=== PATIENT | female | born 1960 | race Caucasian/White ===

== ENCOUNTER 2016-11-11 16:05 | Inpatient (IN) | payer MEDICARE, MEDICAID ==
[2016-11-11] MEDS ORDERED: MAG HYDROX/AL HYDROX/SIMETH 30 ML CUP PO PRN (17:53)
[2016-11-11] MEDS ORDERED: ACETAMINOPHEN TAB 325 MG TAB PO PRN (17:53)
[2016-11-11] MEDS ORDERED: MAGNESIUM HYDROXIDE 2,400 MG/10 ML CUP PO PRN (17:53)
[2016-11-11] MEDS ORDERED: ALBUTEROL INHALER 60 PUFF/8 GM INHALER INHALATION PRN (17:57)
[2016-11-11] MEDS ORDERED: LOPERAMIDE 2 MG CAP PO PRN (17:57)
[2016-11-11] MEDS ORDERED: IBUPROFEN 800 MG TAB PO PRN (18:23)
[2016-11-11] MEDS: ALBUTEROL NEBULIZED 2.5 MG/3 ML INHALATION PRN (18:33)
[2016-11-11] MEDS: LORazepam 1 MG TAB PO PRN (18:57)
[2016-11-11] MEDS: NICOTINE 21MG/24HR PATCH TRANSDERM SCH (19:29)
[2016-11-11] MEDS: traZODone HCL 100 MG TAB PO SCH (21:23)
[2016-11-12] MEDS: LORazepam 1 MG TAB PO PRN ×2 (02:54→13:51)
[2016-11-12] MEDS: ALBUTEROL NEBULIZED 2.5 MG/3 ML INHALATION PRN ×3 (03:13→21:25)
[2016-11-12] MEDS ORDERED: SYMBICORT 160-4.5 MCG INHALER INHALATION SCH (08:00)
[2016-11-12] MEDS ORDERED: DULoxetine HCL 60 MG CAPSULE.DR PO SCH (09:00)
[2016-11-12] MEDS ORDERED: NICOTINE 21MG/24HR PATCH TRANSDERM SCH (09:00)
[2016-11-12] MEDS: amLODIPine 10 MG TAB PO SCH (09:31)
[2016-11-12] MEDS: NICOTINE 21MG/24HR PATCH TRANSDERM SCH (09:32)
[2016-11-12] MEDS ORDERED: clonazePAM 0.5 MG TAB PO STA (10:19)
[2016-11-12] MEDS: guaiFENesin-DM 100-10MG/5ML 10 ML CUP PO PRN ×2 (13:50→21:45)
--- NOTE | 2016-11-12 15:20 | P.HPMEDMHU ---
History of Present Illness H&P Date: 11/12/16 Chief Complaint: Major depressive disorder with suicidal ideation. This is a 56-year-old female one of the Dr. Banks with a previous medical history significant for COPD, chronic fatigue syndrome that was diagnosed back in 2010, hypertension, mitral regurgitation, endometriosis, colon cancer status post right hemicolectomy, chronic tobacco use and dependence with COPD, patient was brought into the emergency department at [facility] because she overdosed on medication and alcohol and she was sent into our mental health unit for evaluation and management. Patient stated that this is not the first time she tried to commit suicide, apparently she did have that twice before. Review of Systems Constitutional: Reports chronic pain, Reports weakness, Denies weight gain, Denies weight loss Eyes: denies blurred vision, denies bulging eye, denies decreased vision Ears: deny: decreased hearing Ears, nose, mouth and throat: Denies dysphagia, Denies neck lump, Denies sore throat Cardiovascular: Reports decreased exercise tolerance, Reports dyspnea on exertion, Reports high blood pressure, Reports shortness of breath, Denies chest pain, Denies paroxysmal nocturnal dyspnea, Denies phlebitis, Denies rapid heart beat Respiratory: Reports cough with sputum, Reports dyspnea, Reports wheezing, Denies congestion, Denies cough, Denies home oxygen, Denies sleep apnea, Denies snoring Gastrointestinal: Denies abdominal pain, Denies bloating, Denies BRBPR, Denies excessive gas, Denies heartburn, Denies hematemesis, Denies hematochezia, Denies indigestion, Denies melena, Denies nausea, Denies vomiting Genitourinary: Denies dysuria, Denies hematuria Menstruation: Reports post hysterectomy Musculoskeletal: Denies myalgias Musculoskeletal: absent: ankle pain, ankle stiffness, ankle swelling, elbow pain , elbow stiffness, elbow swelling, foot pain, foot stiffness, foot swelling, hand pain, hand stiffness, hand swelling, hip pain, hip stiffness, hip swelling , knee pain, knee stiffness, knee swelling, shoulder pain, shoulder stiffness, shoulder swelling, wrist pain, wrist stiffness, wrist swelling Integumentary: Denies pruritus, Denies rash Neurological: Denies numbness, Denies weakness Psychiatric: Reports anxiety, Reports depression, Reports sadness/tearfulness, Reports sleep disturbances, Reports suicidal ideation Endocrine: Denies fatigue, Denies weight change Past Medical History Past Medical History: Cancer, COPD, Dementia, Deep Vein Thrombosis (DVT), Hyperlipidemia, Hypertension, Pneumonia Additional Past Medical History / Comment(s): Chronic Fatigue Syndrome, Heart Mumur, Chronic Diarrhea, Colon Cancer, Carina Gan Virus, Kidney Stones, pneumatosis, possible AR, hypertension. History of Any Multi-Drug Resistant Organisms: None Reported Past Surgical History: Bowel Resection, Cholecystectomy Additional Past Surgical History / Comment(s): Right hemicolectomy, left chest tube placement due to pneumothorax, total abdominal hysterectomy and bilateral sopping oophorectomy due to REBECCA, appendectomy, colonoscopy, left ankle open reduction and internal fixation with removal of the prosthesis. Smoking Status: Current every day smoker (Patient smokes about a pack every day since she was 12-year-old.) Past Alcohol Use History: Daily (Patient drinks a glass of wine sometimes with dinner.) - Past Family History Mother Family Medical History: Cancer (Mother at age of 50 from ovarian cancer.) Father Family Medical History: Unable to Obtain (Father is alive does not talk to him, she does not know nothing about him) Brother(s) Family Medical History: No Reported History (Patient has one brother no major medical problems) Sister(s) Family Medical History: No Reported History (Patient has one sister lesion recurrent problems) Daughter(s) Family Medical History: No Reported History (Patient has 3 daughters no major medical problems.) Son(s) Family Medical History: No Reported History (Patient has 2 sons no major medical problems.) Medications and Allergies Home Medications Medication Instructions Recorded Confirmed Type ALPRAZolam [Xanax] 1 mg PO QID PRN 11/11/16 11/11/16 History ARIPiprazole 6 mg PO DAILY 11/11/16 11/11/16 History Albuterol Nebulized [Ventolin 2.5 mg INHALATION RT-Q6H PRN 11/11/16 11/11/16 History Nebulized] Albuterol Sulfate [Proair Hfa] 2 puff INHALATION RT-DAILY PRN 11/11/16 11/11/16 History Butalb/Acetaminophen/Caffeine 1 tab PO Q4H PRN 11/11/16 11/11/16 History [Fioricet 50-325-40] DULoxetine HCL [Cymbalta] 60 mg PO DAILY 11/11/16 11/11/16 History Fluticasone/Salmeterol [Advair 1 puff PO DAILY 11/11/16 11/11/16 History 500-50 Diskus] Hydrocodone/Acetaminophen [[place] 1 tab PO DAILY PRN 11/11/16 11/11/16 History 10-325] L.acidoph,Paracasei, B.lactis 1 cap PO DAILY 11/11/16 11/11/16 History [Probiotic] Loperamide [Imodium] 2 mg PO TID 11/11/16 11/11/16 History Nicotine 14Mg/24Hr Patch [Habitrol 1 patch TRANSDERM DAILY 11/11/16 11/11/16 History 14Mg/24Hr Patch] amLODIPine BESYLATE [Norvasc] 10 mg PO DAILY 11/11/16 11/11/16 History traZODone HCL [Desyrel] 200 mg PO HS 11/11/16 11/11/16 History Allergies Allergy/AdvReac Type Severity Reaction Status Date / Time codeine AdvReac Severe Unknown Verified 11/11/16 17:51 Physical Exam Vitals: Vital Signs Temp Pulse Pulse Resp BP Pulse Ox 11/12/16 11:42 96 11/12/16 11:24 96 11/12/16 03:14 76 11/12/16 02:58 98.0 F 117 H 20 118/78 11/11/16 18:44 90 11/11/16 18:40 98.6 F 93 18 139/90 92 L 11/11/16 18:35 90 11/11/16 18:15 98.6 F 93 18 139/90 92 L Intake and Output 11/12/16 11/12/16 11/12/16 06:59 14:59 22:59 Other: Weight 51.9 kg Patient Weight 11/13/16 06:59 Weight 51.9 kg - Constitutional General appearance: mild distress, thin - EENT Eyes: anicteric sclerae, PERRLA, no ptosis, no scleral icterus, normal appearance ENT: hearing grossly normal, NA/AT, normal oropharynx, no thrush Ears: bilateral: normal - Neck Neck: no lymphadenopathy, normal ROM, no rigidity, no stridor, no thyromegaly Carotids: bilateral: upstroke normal Thyroid: bilateral: normal size - Respiratory Respiratory: bilateral: diminished, wheezing, prolonged expiration, negative: dullness, rales, rhonchi - Cardiovascular Rhythm: regular Heart sounds: normal: S1, S2 Abnormal Heart Sounds: systolic murmur, no S3 Gallop, no S4 Gallop - Gastrointestinal General gastrointestinal: normal bowel sounds, soft, no splenomegaly, no tenderness, no umbilical hernia, no ventral hernia - Integumentary Integumentary: normal, normal turgor, rash (Anterior chest) - Neurologic Neurologic: CNII-XII intact - Musculoskeletal Musculoskeletal: gait normal, generalized weakness - Psychiatric Psychiatric: A&O x's 3, no appropriate affect, intact judgment & insight Cranial Nerve Examination - Cranial Nerves Cranial Nerve I- Olfactory: Intact Cranial Nerve II- Optic: Intact Cranial Nerve III- Oculomotor: Intact Cranial Nerve IV- Trochlear: Intact Cranial Nerve V- Trigeminal: Intact Cranial Nerve - Abducens: Intact Cranial Nerve VII- Facial: Intact Cranial Nerve VIII- Auditory: Intact Cranial Nerve IX- Glossopharyngeal: Intact Cranial Nerve X- Vagus: Intact Cranial Nerve XI- Accessory: Intact Cranial Nerve XII- Hypoglossal: Intact Assessment and Plan Plan: Assessment and plan: 1. Depressive disorder with suicidal ideation. Admit to the health unit, patient will be placed in suicidal precautions, she was also started on Cymbalta 90 mg orally once every day along with Abilify 5 mg orally once every day and Klonopin 0.5 mg orally 3 times every day. 2. Hypertension and hypertensive cardio vascular disease. Continue amlodipine 10 mg orally once every day. 3. Chronic fatigue syndrome. Stable. 4. Chronic tobacco use and dependence with chronic COPD. Continue DuoNeb nebulization 4 times every day along with Symbicort 160/4.5 g 2 puffs inhalation twice every day. 5. History of colon cancer post right hemicolectomy. In remission 6. History of endometriosis. Post hysterectomy. 7. Mitral regurgitation. Stable at this time. 8. Thank you for the consult. We will follow the patient with you.
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
[2016-11-12] MEDS: clonazePAM 0.5 MG TAB PO SCH ×2 (16:31→21:45)
[2016-11-12] MEDS: traZODone HCL 100 MG TAB PO SCH (21:45)
[2016-11-12 21:58] LABS: Appearance,Urine Clear (Clear); Bilirubin,Urine Negative (Negative); Glucose,Urine (UA) Negative (Negative); Ketones,Urine Negative (Negative); Leukocyte Esterase,Urine Negative (Negative); Nitrite,Urine Negative (Negative); Protein,Urine Negative (Negative); Specific Gravity,Urine 1.003 (1.001-1.035); UA Billing (MACRO vs. MICRO) CHEM; Urobilinogen,Urine <2.0 mg/dL (<2.0)
[2016-11-13 06:44] VITALS: BP 124/75; PULSE 88; RESP 12; TEMP 98.6
[2016-11-13] MEDS: clonazePAM 0.5 MG TAB PO SCH (08:25)
[2016-11-13] MEDS: amLODIPine 10 MG TAB PO SCH (08:25)
[2016-11-13] MEDS: NICOTINE 21MG/24HR PATCH TRANSDERM SCH (08:26)
[2016-11-13] MEDS ORDERED: DULoxetine HCL 30 MG CAPSULE.DR PO SCH (09:00)
[2016-11-13] MEDS ORDERED: ARIPiprazole 5 MG TAB PO SCH (09:00)
[2016-11-13 09:48] VITALS: BMI 20.2
--- NOTE | 2016-11-13 12:27 | P.PN ---
Progress Note - Text SUBJECTIVE: I reviewed the medical record, interviewed Mr. Cano and discussed her treatment and treatment plan during team meeting. She is a 56-year-old woman who presented to the unit voluntarily. She stated that on the day of admission she had been drinking and began having thoughts of suicide. She called the suicide hotline, the suicide Center called EMS brought her to [facility]. She moved into her own home in May 2016 and talked about living alone for the first time in her life. She had been living with the daughter but the daughter is now engaged and wished her mother to move. After she left her daughter's home she lived temporarily [place] [place] She stated that she remained friends with the owners and did not feel alone in the apartment. She left the apartment when she found a home that she could afford on her fixed income. talked about withdrawing from friends and family and feeling unhappy. She alleged that she attempted suicide about 2 days prior to admission by taking 2 Xanax into trazodone tablets. She did not drink alcohol in addition to the medications and did not seek mental health treatment.. On the day of admission she went to a bar with a friend. She drank "between 6 and 8 beers". Her friend left the bar but she remained and continue to socialize with friends at the bar. When she returned home she began to read over her journal. As she read the general she realizes that she has become more and more isolated. She began having feelings of hopelessness and helplessness. When she had thoughts of suicide she called the suicide hotline. She currently denies feeling hopeless, helpless and worthless. She stated that "mentally I am much better but physically feeling poorly. I feel nauseous and had diarrhea last night." She completed the Malloy Depression Inventory. Her total score was 4 consistent with minimal symptoms of depression. Her only complaints was lack of energy and poor sleep. She denied suicidal ideation, intent or plan. OBJECTIVE: She presented as a casually groomed 56-year-old female who was pleasant on approach. She maintained eye contact and attended to the interview. She had no distinguishing features are prominent physical abnormalities. She had a blunted but bright facial expression. She was alert and oriented to person, place and time. She has slight psychomotor retardation but no abnormal involuntary movements. His speech was spontaneous with normal rate, rhythm and volume. Affect was blunted but stable and appropriate. She denied suicidal ideation or wishes. She denied homicidal ideation. She denied depressive cognitions such as hopelessness, helplessness or worthlessness. She did not express phobias, ideas reference or paranoid ideation. Her thinking was concrete but her associations were coherent and logical. She denied hallucinations and did not appear to be responding to internal stimuli. ASSESSMENT: She appears minimally depressed and denies suicidal ideation, intent or plan. Her presentation appears per related to psychosocial issues compounded by recent use of alcohol. She does not require continued inpatient psychiatric hospitalization would benefit from continued outpatient treatment including individual therapy. PLAN: Discharge home with follow-up by her private psychiatrist. Social work will also arranged for referral for outpatient individual therapy.
--- NOTE | 2016-11-13 12:33 | P.DS ---
Providers Date of admission: 11/11/16 16:45 Attending physician: Conner Alatorre MD Consults: 11/11/16 17:53 Consult Physician Routine Consulting Provider: Betty Liu Consult Reason/Comments: follow up H & P Do you want consulting provider notified?: Yes Primary care physician: Stated None - Discharge Diagnosis(es) (1) Dysthymic disorder Current Visit: Yes Status: Chronic Priority: Medium (2) Alcohol use disorder, mild, abuse Current Visit: Yes Status: Acute Priority: Low (3) Suicidal ideation Current Visit: Yes Status: Resolved Priority: Low Hospital Course: She is a 56-year-old woman who presented to the unit voluntarily. She stated that on the day of admission she had been drinking and began having thoughts of suicide. She called the suicide hotline, the suicide Center called EMS brought her to [facility]. She moved into her own home in May 2016 and talked about living alone for the first time in her life. She had been living with the daughter but the daughter is now engaged and wished her mother to move. After she left her daughter's home she lived temporarily an apartment [place] a [place]. She stated that she remained friends with the owners and did not feel alone in the apartment. She left the apartment when she found a home that she could afford on her fixed income. talked about withdrawing from friends and family and feeling unhappy. She alleged that she attempted suicide about 2 days prior to admission by taking 2 Xanax into trazodone tablets. She did not drink alcohol in addition to the medications and did not seek mental health treatment.. On the day of admission she went to a bar with a friend. She drank "between 6 and 8 beers". Her friend left the bar but she remained and continue to socialize with friends at the bar. When she returned home she began to read over her journal. As she read the general she realizes that she has become more and more isolated. She began having feelings of hopelessness and helplessness. When she had thoughts of suicide she called the suicide hotline. We admitted her to the psychiatric unit under care of this marine underwriter. We provided a biopsychosocial assessment. A client insights consultant weight loss physician completed the initial history and physical exam. The weight loss physician diagnosed hypertension and hypertensive cardiovascular disease, chronic fatigue syndrome, tobacco use disorder, COPD, history of colon cancer with right hemicolectomy, history of endometriosis, mitral regurgitation. We continued her outpatient medications including Ventolin inhaler and Ventolin nebulizer, Norvasc 10 mg daily, Abilify 5 mg daily, Symbicort 160-4.5 mg 3 times a day, Cymbalta 90 mg daily, and trazodone 200 mg at bedtime. We prescribed Klonopin 5 mg 3 times a day instead of her outpatient dose of Xanax one milligrams 4 times a day. She denied suicidal ideation, plan or intent on presentation to the unit. She participated in therapeutic groups and activities and posed no management problem. She showed no suicidal or appear suicidal behaviors. On the Malloy Depression Inventory her total score was 4 consistent with minimal symptoms depression. We discharged her to the care of her outpatient psychiatrist and a social work therapist is arranging a referral for outpatient individual therapy. Patient Condition at Discharge: Stable Plan - Discharge Summary Discharge Medication List ALPRAZolam [Xanax] 1 mg PO QID PRN 11/11/16 [History] ARIPiprazole 6 mg PO DAILY 11/11/16 [History] Albuterol Nebulized [Ventolin Nebulized] 2.5 mg INHALATION RT-Q6H PRN 11/11/16 [ History] Albuterol Sulfate [Proair Hfa] 2 puff INHALATION RT-DAILY PRN 11/11/16 [History] Butalb/Acetaminophen/Caffeine [Fioricet 50-325-40] 1 tab PO Q4H PRN 11/11/16 [ History] DULoxetine HCL [Cymbalta] 60 mg PO DAILY 11/11/16 [History] Fluticasone/Salmeterol [Advair 500-50 Diskus] 1 puff PO DAILY 11/11/16 [History] Hydrocodone/Acetaminophen [[place] 10-325] 1 tab PO DAILY PRN 11/11/16 [History] L.acidoph,Paracasei, B.lactis [Probiotic] 1 cap PO DAILY 11/11/16 [History] Loperamide [Imodium] 2 mg PO TID 11/11/16 [History] Nicotine 14Mg/24Hr Patch [Habitrol] 1 patch TRANSDERM DAILY 11/11/16 [History] amLODIPine BESYLATE [Norvasc] 10 mg PO DAILY 11/11/16 [History] traZODone HCL [Desyrel] 200 mg PO HS 11/11/16 [History] Follow up Appointment(s)/Referral(s): [facility] [Outside] - 11/15/16 2:00 pm (Ana Laura please arrive 20 minutes early for paperwork ) Boogie Boo MD [REFERRING] - 12/27/16 4:00 pm (Dr Boo) Discharge Disposition: HOME SELF-CARE
== END 2016-11-13 14:04 | disposition home or self-care (01) | DRG 881 ==
LOC: 3MHU 16:45
PROVIDERS: ADMIT Psychiatry & Neurology Psychiatry; ATTEND Psychiatry & Neurology Psychiatry
DX: F34.1 Dysthymic disorder (principal); I11.9 Hypertensive heart disease without heart failure; R45.851 Suicidal ideations; R53.82 Chronic fatigue, unspecified; F17.200 Nicotine dependence, unspecified, uncomplicated; F10.10 Alcohol abuse, uncomplicated; J44.9 Chronic obstructive pulmonary disease, unspecified; I34.0 Nonrheumatic mitral (valve) insufficiency; Z91.5 Personal history of self-harm; Z85.038 Personal history of other malignant neoplasm of large intestine; Z90.710 Acquired absence of both cervix and uterus; Z90.49 Acquired absence of other specified parts of digestive tract; Z79.51 Long term (current) use of inhaled steroids; Z79.899 Other long term (current) drug therapy; Z81.8 Family history of other mental and behavioral disorders
CPT/HCPCS: 81003; 84443; 94640